=== PATIENT | male | born 1960 | race Hispanic/Latino ===

== ENCOUNTER 2017-02-21 07:20 | Outpatient (RCR) | payer OTHER | END 2017-03-08 | LOC: PT 07:20 | PROVIDERS: ATTEND Orthopaedic Surgery | DX: S43.421A Sprain of right rotator cuff capsule, initial encounter (principal); M75.111 Incomplete rotator cuff tear or rupture of right shoulder, not specified as traumatic; M25.511 Pain in right shoulder; M62.81 Muscle weakness (generalized) ==

== ENCOUNTER 2017-04-20 09:25 | Outpatient (RCR) | payer OTHER | END 2017-05-06 | LOC: PT 09:25 | PROVIDERS: ATTEND Orthopaedic Surgery | DX: M25.511 Pain in right shoulder (principal); M75.101 Unspecified rotator cuff tear or rupture of right shoulder, not specified as traumatic; M62.81 Muscle weakness (generalized) ==